=== PATIENT | male | born 1960 | race Caucasian/White ===

== ENCOUNTER → 2016-10-05 | Outpatient (CLI) | payer BC ==
[~2016-10-05] MED LIST: LISINOPRIL20 MG PO
== END | disposition home or self-care (01) ==
LOC: CDC 10:20
DX: Z01.810 Encounter for preprocedural cardiovascular examination (principal); M75.122 Complete rotator cuff tear or rupture of left shoulder, not specified as traumatic; M89.512 Osteolysis, left shoulder
CPT/HCPCS: 93000

== ENCOUNTER 2016-11-17 15:56 | Observation (INO) | payer BC ==
[~2016-11-17] VITALS: Ht 182.9 cm; Wt 92.0 kg
[2016-11-17 17:19] LABS: HEMATOCRIT 51.5 % (38.0-50.0); MCH 29.1 PG (29.0-34.0); MCHC 32.8 G/DL (30.0-36.0); MCV 88.6 FL (86-99); MEAN PLAT.VOLUME 10.7 uM^3 (9.0-12.4); PLATELET COUNT 216 K/uL (156-360); RBC DIS.WIDTH-CV 12.4 % (11.8-14.6); RBC DIS.WIDTH-SD 40.2 % (39-53); RED BLOOD COUNT 5.81 M/uL (4.00-5.50); WHITE BLOOD COUNT 9.3 K/uL (4.1-10.2)
[2016-11-17 17:34] LABS: CHLORIDE 101 mEq/L (99-109); POTASSIUM 4.7 mEq/L (3.7-5.4); SODIUM 137 mEq/L (136-147)
[2016-11-17 17:35] LABS: GLUCOSE 124 mg/dL (70-99)
[2016-11-17 17:37] LABS: ANION GAP 16 MEQ/L (2-14)
[2016-11-17 17:39] LABS: GFR ESTIMATE (CALCULATED) > 59 mL/min/
[2016-11-17 17:40] LABS: UREA NITROGEN (BUN) 12 mg/dL (9-23)
[2016-11-17 17:44] LABS: TROP-I INTERPRETATION NEGATIVE; TROPONIN-I < 0.01 ng/mL (0.0-0.30)
[2016-11-17 21:10] VITALS: BP 166/111
[2016-11-17 23:56] LABS: D-DIMER ELISA 0.24 mg/L FEU (< 0.57); INTER. NORMALIZED RATIO 1.1; PROTHROMBIN TIME 11.1 (9.2-11.2); PTT 28.4 (25-32)
[2016-11-18 00:03] LABS: TROP-I INTERPRETATION NEGATIVE; TROPONIN-I < 0.01 ng/mL (0.0-0.30)
[2016-11-18 00:44] VITALS: BP 112/75
[2016-11-18 05:10] VITALS: BP 121/67
[2016-11-18 05:42] LABS: TROP-I INTERPRETATION NEGATIVE; TROPONIN-I < 0.01 ng/mL (0.0-0.30)
[2016-11-18 05:59] LABS: HDL CHOLESTEROL 32 MG/DL (Desirable>=40); LDL CHOLESTEROL 102 mg/dL (Desirable<100); NON-HDL CHOLESTEROL 127 mg/dL (Desirable<160); TOTAL CHOLESTEROL 159 mg/dL (Desirable<200); TRIGLYCERIDES 126 MG/DL (Normal: <150)
[2016-11-18 08:06] LABS: Estimated Average Glucose 154 mg/dL (70-123)
[2016-11-18 08:36] VITALS: BP 116/67
[2016-11-18 11:46] VITALS: BP 105/65
[2016-11-18] MEDS ORDERED: VALSARTAN160 MG PO (11:53)
[2016-11-18] MEDS ORDERED: LO-DOSE ASPIRIN81 M2 PO (11:53)
[2016-11-18] MEDS ORDERED: LOPRESSOR25 MG PO (11:53)
== END 2016-11-18 13:17 | disposition home or self-care (01) ==
LOC: EME 15:56 → EDOF 19:48 → 5WEST 19:48
PROVIDERS: Internal Medicine; Physician Assistant Medical
DX: R07.89 Other chest pain (principal); I16.0 Hypertensive urgency; I10 Essential (primary) hypertension; E11.9 Type 2 diabetes mellitus without complications; E78.5 Hyperlipidemia, unspecified; F41.0 Panic disorder [episodic paroxysmal anxiety]; F10.10 Alcohol abuse, uncomplicated; F17.220 Nicotine dependence, chewing tobacco, uncomplicated
CPT/HCPCS: 71020; 80048; 80061; 82948; 83036; 84484; 85027; 85379; 85610; 85730; 93005; 99281; 99285; G0378; J1650; J7030